=== PATIENT | female | born 1940 | race Caucasian/White ===

== ENCOUNTER 2023-11-14 17:48 | Inpatient (IN) | payer MEDICARE ==
[2023-11-14 18:09] VITALS: BMI 37.0
[2023-11-14] MEDS ORDERED: Ondansetron ODT 4 MG TAB PO PRN (21:12)
[2023-11-14] MEDS ORDERED: Senokot S 8.6-50 MG TAB PO PRN (21:12)
[2023-11-14] MEDS ORDERED: Bisacodyl 5 MG TAB PO PRN (21:12)
[2023-11-14] MEDS ORDERED: Bisacodyl 10 MG SUPP PR PRN (21:12)
[2023-11-15] MEDS: Calcium Carbonate 600 MG + Vit D TAB PO SCH (08:50)
[2023-11-15] MEDS: CO Q-10 CAPSULE 100 MG PO SCH (08:51)
[2023-11-15] MEDS: Acetaminophen 500 MG TAB PO SCH (08:51)
[2023-11-15] MEDS: Aspirin Chewable 81 MG TAB PO SCH (08:51)
[2023-11-15] MEDS: Meloxicam 7.5 MG TAB PO SCH (08:51)
[2023-11-15] MEDS: tiZANidine HCl 4 MG TAB PO SCH (08:51)
[2023-11-15] MEDS: Polyethylene Glycol 3350 17 GM Packet PO SCH (08:52)
[2023-11-15] MEDS: Famotidine 20 MG TAB PO SCH (08:52)
[2023-11-15] MEDS: Enoxaparin 40 MG (0.4 mL) SYRINGE SC SCH (08:52)
[2023-11-15] MEDS: Fish Oil 1,000 MG CAP PO SCH (08:52)
[2023-11-15] MEDS: Ezetimibe 10 MG TAB PO SCH (08:52)
[2023-11-15] MEDS: Ranolazine ER 500 MG TAB PO SCH (08:52)
[2023-11-15] MEDS: Gabapentin 100 MG CAP PO SCH (08:52)
[2023-11-15] MEDS ORDERED: Calcium Carbonate 600 MG + Vit D TAB PO SCH (09:00)
[2023-11-15] MEDS: HYDROcodone/Acetaminophen 5/325 mg Tablet PO PRN (17:38)
[2023-11-15] MEDS: Atorvastatin Calcium 10 MG TAB PO SCH (20:58)
[2023-11-18] MEDS: Acetaminophen 325 MG TAB PO PRN (02:23)
[2023-11-20] MEDS: Lantiseptic Ointment 130 GM JAR TOP PRN (14:50)
[2023-11-20] MEDS: Lantiseptic Ointment 130 GM JAR TOP SCH (20:51)
[2023-11-27 07:36] VITALS: BMI 37.5
[2023-11-30 05:21] LABS: Hematocrit 36.8 % (36.0-47.0); Hemoglobin 11.8 g/dL (12.0-16.0); Platelet Count 238 10x3/uL (130-400)
[2023-12-10 06:58] VITALS: BP 138/81; TEMP 98.6
== END 2023-12-10 12:30 | DRG 561 ==
LOC: MADMS 17:52
PROVIDERS: ADMIT Family Medicine; ATTEND Family Medicine
DX: S32.019D Unspecified fracture of first lumbar vertebra, subsequent encounter for fracture with routine healing (principal); I10 Essential (primary) hypertension; E78.5 Hyperlipidemia, unspecified; M19.90 Unspecified osteoarthritis, unspecified site; R53.81 Other malaise; F03.90 Unspecified dementia, unspecified severity, without behavioral disturbance, psychotic disturbance, mood disturbance, and anxiety; F79 Unspecified intellectual disabilities; Z90.49 Acquired absence of other specified parts of digestive tract; Z98.890 Other specified postprocedural states; Z79.82 Long term (current) use of aspirin; Z79.899 Other long term (current) drug therapy
CPT/HCPCS: 36415; 72100; 85014; 85018; 85049; J1650

== ENCOUNTER 2024-10-25 09:30 | Outpatient (CLI) | payer MEDICARE, MEDICAID ==
[2024-10-25 10:19] LABS: #Basophils 0.1 thou/uL (0.0-0.2); #Eosinophils 0.2 thou/uL (0.0-0.7); #Lymphocytes 3.1 thou/uL (1.20-3.40); #Monocytes 0.5 thou/uL (0.11-0.59); #Neutrophils 2.4 thou/uL (1.40-6.50); %Basophils 1.9 % (0.0-1.0); %Eosinophils 3.3 % (0.0-10.0); %Lymphocytes 49.1 % (21.0-51.0); %Monocytes 7.7 % (0.0-10.0); %Neutrophils 38.0 % (42.0-75.0); Hematocrit 42.0 % (36.0-47.0); Hemoglobin 13.2 g/dL (12.0-16.0); Mean Corpuscular Hemoglobin 31.5 pg (27.0-31.0); Mean Corpuscular Volume 99.9 fl (78.0-98.0); Platelet Count 268 10x3/uL (130-400); Red Blood Cell (RBC) Count 4.20 mill/uL (4.20-5.40); White Blood Cell (WBC) Count 6.3 10x3/uL (4.8-10.8)
[2024-10-25 10:20] LABS: ALT (SGPT) 14 U/L (Less than 34); AST (SGOT) 19 U/L (11-34); Albumin 2.9 g/dL (3.1-4.5); Alkaline Phosphatase 59 U/L (40-110); Anion Gap 11 mmol/L (10-20); BUN (Urea Nitrogen) 19 mg/dL (9.8-20.1); Bilirubin, Total 0.5 mg/dL (0.3-1.2); Calc. Creatinine Clearance 0 mL/min (70-130); Calcium 8.7 mg/dL (7.8-10.44); Carbon Dioxide 25 mmol/L (23-31); Cardiac Risk 3.5 (Less than 4.5); Chloride 110 mmol/L (98-107); Cholesterol 158 mg/dl (< 200 Desired); Globulin 2.9 g/dL (2.4-3.5); Glucose 92 mg/dL (83-110); HDL Cholesterol 45 mg/dL (>60 Neg Risk); LDL Cholesterol, Calculated 88 mg/dL; Magnesium 2.0 mg/dL (1.6-2.6); Potassium 4.2 mmol/L (3.5-5.1); Sodium 142 mmol/L (136-145); Triglycerides 124 mg/dL (Less than 150)
[2024-10-25 17:33] LABS: Vitamin B12 339.0 pg/mL (211-911)
[2024-10-26 02:22] LABS: Vitamin D, 25 Hydroxy 49.0 ng/ml (> 30.0)
== END 2024-10-25 09:31 | disposition home or self-care (01) ==
LOC: MADLAB 09:30
PROVIDERS: ATTEND Family Medicine
DX: Z01.89 Encounter for other specified special examinations (principal); F03.90 Unspecified dementia, unspecified severity, without behavioral disturbance, psychotic disturbance, mood disturbance, and anxiety
CPT/HCPCS: 80053; 80061; 82306; 82607; 83036; 83735; 84443; 85025